=== PATIENT | male | born 1935 | race Caucasian/White ===

== ENCOUNTER → 2018-04-03 09:40 | Outpatient (CLI) | payer MEDICARE, OTHER, SELFPAY | PROVIDERS: PCP Student in an Organized Health Care Education/Training Program; Visit Provider Psychiatry & Neurology Neurology | DX: M85.852 Other specified disorders of bone density and structure, left thigh (principal) | CPT/HCPCS: 77080 ==

== ENCOUNTER → 2018-06-25 15:56 | Outpatient (CLI) | payer MEDICARE, OTHER, SELFPAY ==
[2018-06-25 16:50] LABS: Hematocrit 46.1 % (41-53)
[2018-06-25 17:09] LABS: Creatinine Urine Random 129.9 mg/dL; HEMOLYSIS 15 (0-50); Iron 96 ug/dL (49-181); Protein (Total) Urine Random 10 mg/dL (0-12); Protein Creatinine Ratio Urine 0.07 GRAM/24H
[2018-06-25 17:12] LABS: BUN Creatinine Ratio 13.1 (6-22); Blood Urea Nitrogen 21 mg/dL (9-20); Calcium 9.3 mg/dL (8.4-10.2); Carbon Dioxide 26 mmol/L (22-32); Chloride 106 mmol/L (98-107); Estimated Glomerular Filt Rate 41.6 mL/min (>60); Glucose 118 mg/dL (80-110); HEMOLYSIS < 15 (0-50); Potassium 4.1 mmol/L (3.4-5.1); Sodium 144 mmol/L (137-145)
[2018-06-25 17:20] LABS: Percent Iron Saturation 37 % (20-50); Total Iron Binding Capacity 257 ug/dL (261-462); Transferrin 204 mg/dL (206-381)
[2018-06-25 17:46] LABS: Ferritin 29.8 ng/mL (17.9-464)
[2018-06-27 16:36] LABS: Parathyroid Hormone Int 50 pg/mL (14-64)
== END ==
PROVIDERS: PCP Family Medicine; Visit Provider Student in an Organized Health Care Education/Training Program
DX: N05.9 Unspecified nephritic syndrome with unspecified morphologic changes (principal); D50.0 Iron deficiency anemia secondary to blood loss (chronic); D64.9 Anemia, unspecified; N25.81 Secondary hyperparathyroidism of renal origin
CPT/HCPCS: 36415; 80048; 82570; 82728; 83540; 83550; 83970; 84156; 85014; 85018

== ENCOUNTER → 2018-12-30 13:50 | Outpatient (CLI) | payer MEDICARE, OTHER, SELFPAY ==
[2018-12-30 14:30] LABS: Hematocrit 48.7 % (41-53); Hemoglobin 16.7 g/dL (13.5-17.5)
[2018-12-30 15:14] LABS: HEMOLYSIS < 15 (0-50); Iron 134 ug/dL (49-181)
[2018-12-30 15:25] LABS: Percent Iron Saturation 48 % (20-50); Total Iron Binding Capacity 281 ug/dL (261-462); Transferrin 220 mg/dL (206-381)
[2018-12-30 15:57] LABS: Blood Urea Nitrogen 21 mg/dL (9-20); Calcium 9.2 mg/dL (8.4-10.2); Carbon Dioxide 25 mmol/L (22-32); Chloride 108 mmol/L (98-107); Estimated Glomerular Filt Rate 44.7 mL/min (>60); Glucose 99 mg/dL (80-110); HEMOLYSIS < 15 (0-50); Potassium 4.1 mmol/L (3.4-5.1); Sodium 142 mmol/L (137-145)
[2018-12-30 16:02] LABS: Creatinine Urine Random 175.8 mg/dL; Protein (Total) Urine Random 10 mg/dL (0-12)
[2018-12-30 16:03] LABS: Protein Creatinine Ratio Urine 0.05 GRAM/24H
[2018-12-30 16:31] LABS: Ferritin 19.7 ng/mL (17.9-464)
[2019-01-02 15:14] LABS: Parathyroid Hormone Int 56 pg/mL (14-64)
== END ==
PROVIDERS: PCP Family Medicine; Visit Provider Student in an Organized Health Care Education/Training Program
DX: N05.9 Unspecified nephritic syndrome with unspecified morphologic changes (principal); D50.0 Iron deficiency anemia secondary to blood loss (chronic); D64.9 Anemia, unspecified; N25.81 Secondary hyperparathyroidism of renal origin; R80.9 Proteinuria, unspecified
CPT/HCPCS: 36415; 80048; 82570; 82728; 83540; 83550; 83970; 84156; 85014; 85018

== ENCOUNTER → 2019-05-17 14:58 | Outpatient (CLI) | payer MEDICARE, OTHER, SELFPAY ==
--- NOTE | 2019-05-17 | DI.CT.S_ITS ---
PROCEDURE: CT KIDNEY URETER BLADDER (KUB) INDICATIONS: Asymptomatic microscopic hematuria TECHNIQUE: Noncontrast 5 mm thick sections acquired from the diaphragms to the symphysis. 5 mm thick coronal and sagittal reformats were then performed. For radiation dose reduction, the following was used: automated exposure control, adjustment of mA and/or kV according to patient size. COMPARISON: [facility], CT, KIDNEY/ URETER/BLADDER, 06/30/2017, 9:44. CT IVP 10/08/2016. FINDINGS: Image quality: Excellent. Lung bases: Stable oblong-shaped pulmonary nodule in the right middle lobe, (4/12). Stable punctate pulmonary nodule in the left lung base, (4/7). Heart size is normal. Coronary artery calcifications. 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 Surgical clips at the left pelvic brim. No kidney stones. No hydronephrosis. No solid renal mass. A few stable simple cyst, the largest of which measuring 4.2 cm. No bladder calculus. There is less conspicuous thickening along the left lateral bladder wall. There is a small right lateral bladder diverticulum which has increased in size, (2/70). Other solid organs: Liver is normal in size. A few circumscribed benign cysts. Gallbladder is nondistended. Calcified gallstone is present, (2/35). Pancreas is atrophic. Spleen is normal in size. No adrenal nodules. Peritoneum and bowel: Moderate diverticulosis. The appendix is normal. Unenhanced bowel loops demonstrate normal wall thickness and caliber. A small duodenal diverticulum. No free fluid or air. Nodes and vessels: No retroperitoneal or mesenteric adenopathy by size criteria. Aorta and inferior vena cava are normal in caliber. Abdominal wall: No ventral hernias. Pelvis: No free pelvic fluid. No inguinal hernias or adenopathy. Bones: No suspicious bony lesions. Left hip total arthroplasty. No periprosthetic lucency. Stable severe L1 compression fracture. IMPRESSION: 1. No right renal mass seen on this noncontrast examination. If renal function permits and no contrast allergy recommend CT IVP to screen the renal collecting system/ureter for filling defects as was seen on CT IVP from 2017. 2. No kidney stones. No hydronephrosis. 3. No mass in the left nephrectomy bed. 4. Slight interval enlargement in the right lateral bladder wall diverticulum. Subtle persistent left lateral bladder wall thickening. Direct visualization with cystoscopy should be considered if not yet performed. Dictated by: Mookie Cochran M.D. on 05/17/2019 at 16:51 Approved by: Mookie Cochran M.D. on 05/17/2019 at 17:08
== END ==
PROVIDERS: PCP Family Medicine; Visit Provider Family Medicine
DX: R31.21 Asymptomatic microscopic hematuria (principal); N32.3 Diverticulum of bladder; N28.1 Cyst of kidney, acquired; R91.8 Other nonspecific abnormal finding of lung field; K57.90 Diverticulosis of intestine, part unspecified, without perforation or abscess without bleeding; Z90.5 Acquired absence of kidney
CPT/HCPCS: 74176

== ENCOUNTER → 2019-07-16 11:31 | Outpatient (CLI) | payer MEDICARE, OTHER, SELFPAY ==
[2019-07-16 12:29] LABS: Hematocrit 46.6 % (41-53); Hemoglobin 16.1 g/dL (13.5-17.5)
[2019-07-16 12:39] LABS: Blood Urea Nitrogen 21 mg/dL (9-20); Calcium 9.5 mg/dL (8.4-10.2); Carbon Dioxide 26 mmol/L (22-32); Chloride 106 mmol/L (98-107); Estimated Glomerular Filt Rate 44.7 mL/min (>60); Glucose 105 mg/dL (80-110); HEMOLYSIS < 15 (0-50); Potassium 4.2 mmol/L (3.4-5.1); Sodium 140 mmol/L (137-145)
[2019-07-16 13:11] LABS: Prostate Specific Antigen 4.84 ng/mL (0.10-4.00)
[2019-07-16 15:15] LABS: Creatinine Urine Random 155.3 mg/dL; Protein (Total) Urine Random 11 mg/dL (0-12); Protein Creatinine Ratio Urine 0.07 GRAM/24H
[2019-07-24 12:51] LABS: Parathyroid Hormone Int 37 pg/mL (14-64)
== END ==
PROVIDERS: Family Provider Student in an Organized Health Care Education/Training Program; PCP Family Medicine; Visit Provider Specialist
DX: N40.1 Benign prostatic hyperplasia with lower urinary tract symptoms (principal); N05.9 Unspecified nephritic syndrome with unspecified morphologic changes; D64.9 Anemia, unspecified; N25.81 Secondary hyperparathyroidism of renal origin; R80.9 Proteinuria, unspecified
CPT/HCPCS: 36415; 80048; 82570; 83970; 84153; 84156; 85014; 85018

== ENCOUNTER → 2020-01-27 16:56 | Outpatient (CLI) | payer MEDICARE, OTHER, SELFPAY ==
[2020-01-27 17:54] LABS: Hematocrit 46.9 % (41-53); Hemoglobin 16.5 g/dL (13.5-17.5)
[2020-01-27 18:12] LABS: BUN Creatinine Ratio 14.9 (6-22); Blood Urea Nitrogen 22 mg/dL (9-20); Calcium 9.4 mg/dL (8.4-10.2); Carbon Dioxide 26 mmol/L (22-32); Chloride 106 mmol/L (98-107); Estimated Glomerular Filt Rate 45.3 mL/min (>60); Glucose 91 mg/dL (80-110); HEMOLYSIS < 15 (0-50); Potassium 4.4 mmol/L (3.4-5.1); Sodium 139 mmol/L (137-145)
[2020-01-27 18:24] LABS: Creatinine Urine Random 98.4 mg/dL; Protein (Total) Urine Random 12 mg/dL (0-12); Protein Creatinine Ratio Urine 0.12 GRAM/24H
[2020-01-28 06:36] LABS: Parathyroid Hormone Int 38 pg/mL (15-65)
== END ==
PROVIDERS: Family Provider Student in an Organized Health Care Education/Training Program; PCP Family Medicine; Referring Provider Student in an Organized Health Care Education/Training Program; Visit Provider Student in an Organized Health Care Education/Training Program
DX: R80.9 Proteinuria, unspecified (principal); D64.9 Anemia, unspecified; N05.9 Unspecified nephritic syndrome with unspecified morphologic changes; N25.81 Secondary hyperparathyroidism of renal origin
CPT/HCPCS: 36415; 80048; 82570; 83970; 84156; 85014; 85018

== ENCOUNTER → 2020-10-27 09:16 | Outpatient (CLI) | payer MEDICARE, OTHER, SELFPAY ==
[2020-10-27] MEDS: COVID-19 VACC #1, MRNA(MOD) 100 MCG/0.5 ML VIAL IM (09:18)
== END ==
PROVIDERS: Family Provider Student in an Organized Health Care Education/Training Program; PCP Family Medicine; Visit Provider Internal Medicine
DX: Z23 Encounter for immunization (principal)
CPT/HCPCS: 0011A; 91301

== ENCOUNTER → 2020-11-24 09:17 | Outpatient (CLI) | payer MEDICARE, OTHER, SELFPAY ==
[2020-11-24] MEDS: COVID-19 VACC #2, MRNA(MOD) 100 MCG/0.5 ML VIAL IM (09:21)
== END ==
PROVIDERS: Family Provider Student in an Organized Health Care Education/Training Program; PCP Family Medicine; Visit Provider Internal Medicine
DX: Z23 Encounter for immunization (principal)
CPT/HCPCS: 0012A; 91301

== ENCOUNTER → 2021-02-20 11:36 | Outpatient (CLI) | payer MEDICARE, OTHER, SELFPAY ==
[2021-02-20 12:22] LABS: HEMOLYSIS < 15 (0-50); Potassium 4.6 mmol/L (3.4-5.1)
[2021-02-20 12:23] LABS: BUN Creatinine Ratio 17.5 (6-22); Blood Urea Nitrogen 27 mg/dL (9-20); Calcium 9.3 mg/dL (8.4-10.2); Carbon Dioxide 27 mmol/L (22-32); Chloride 106 mmol/L (98-107); Estimated Glomerular Filt Rate 43.1 mL/min (>60); Glucose 90 mg/dL (80-110); Sodium 139 mmol/L (137-145)
[2021-02-20 12:55] LABS: Thyroid Stimulating Hormone 2.88 uIU/mL (0.47-4.68)
== END ==
PROVIDERS: Family Provider Student in an Organized Health Care Education/Training Program; PCP Family Medicine; Referring Provider Family Medicine; Visit Provider Family Medicine
DX: E03.9 Hypothyroidism, unspecified (principal); I10 Essential (primary) hypertension; N18.30 Chronic kidney disease, stage 3 unspecified
CPT/HCPCS: 36415; 80048; 84443

== ENCOUNTER → 2021-09-25 15:16 | Outpatient (CLI) | payer MEDICARE, OTHER, SELFPAY ==
[2021-09-25 16:23] LABS: Appearance Urine UA CLOUDY; Bilirubin Urine UA NEGATIVE (NEGATIVE); Color Urine UA YELLOW; Glucose Urine UA TRACE g/dL (Negative); Ketones Urine UA NEGATIVE (NEGATIVE); Leukocyte Esterase Urine UA 1+ (NEGATIVE); Nitrite Urine UA POSITIVE (Negative); Occult Blood Urine UA 3+ (Negative); Protein Urine UA 2+ (Negative); Specific Gravity Urine UA >=1.030 (1.000-1.035); Urobilinogen Urine UA 0.2 E.U./dL (0.2)
[2021-09-25 17:06] LABS: Bacteria Urine Moderate (10-30); Culture Indicated Urine Specimen Cultured; RBC Urine 10-30/HPF (0-5/HPF); Squamous Epithelial Cell Urine 0-1 /HPF (0-5/HPF); WBC Urine 30-100/HPF (0-5/HPF)
== END ==
PROVIDERS: Family Provider Student in an Organized Health Care Education/Training Program; PCP Family Medicine; Referring Provider Specialist; Visit Provider Specialist
DX: R30.0 Dysuria (principal)
CPT/HCPCS: 81001; 87077; 87086; 87186

== ENCOUNTER → 2021-12-12 08:41 | Outpatient (CLI) | payer MEDICARE, OTHER, SELFPAY ==
[2021-12-12 10:24] LABS: Add Manual Diff / Slide Review NO; Basophils Absolute Auto 100 /uL (0-100); Eosinophils Absolute Auto 300 /uL (0-450); Eosinophils Percent Auto 4.4 % (2-4); Hematocrit 46.6 % (41-53); Lymphocytes Absolute Auto 2700 /uL (1100-4500); Lymphocytes Percent Auto 39.6 % (25-40); Mean Corpuscular HGB Conc 34.3 % (30-36); Mean Corpuscular Hemoglobin 29.8 PG (26-34); Mean Corpuscular Volume 86.9 fL (80-100); Monocytes Absolute Auto 600 /uL (0-900); Monocytes Percent Auto 8.1 % (3-14); Neutrophils Absolute Auto 3200 /uL (1500-7000); Neutrophils Percent Auto 46.9 % (50-75); Platelet Count 130 X10^3/uL (150-400); Red Blood Cell Count 5.36 X10^6/uL (4.5-5.9); Red Cell Distribution Width 14.2 % (11.6-14.8); White Blood Cell Count 6.9 X10^3/uL (4.5-11.0)
[2021-12-12 10:56] LABS: Alanine Aminotransferase 18 IU/L (<50); Albumin 4.1 g/dL (3.5-5.0); Albumin Globulin Ratio 1.4 (1.0-2.8); Alkaline Phosphatase 58 U/L (38-126); Aspartate Aminotransferase 30 IU/L (17-59); BUN Creatinine Ratio 16.1 (6-22); Bilirubin Total 0.7 mg/dL (0.2-1.3); Blood Urea Nitrogen 25 mg/dL (9-20); Calcium 9.2 mg/dL (8.4-10.2); Carbon Dioxide 26 mmol/L (22-32); Chloride 108 mmol/L (98-107); Cholesterol 236 mg/dL (140-199); Estimated Glomerular Filt Rate 42.7 mL/min (>60); Glucose 89 mg/dL (80-110); HDL Cholesterol 43 mg/dL (40-60); HEMOLYSIS < 15 (0-50); LDL Cholesterol Calculated 167 mg/dL (<100); Potassium 4.2 mmol/L (3.4-5.1); Sodium 141 mmol/L (137-145); Total Protein 7.1 g/dL (6.3-8.2); Triglycerides 128 mg/dL (35-150)
[2021-12-12 11:30] LABS: Thyroid Stimulating Hormone 5.56 uIU/mL (0.47-4.68)
== END ==
PROVIDERS: PCP Family Medicine; Referring Provider Family Medicine; Visit Provider Family Medicine
DX: N18.30 Chronic kidney disease, stage 3 unspecified (principal); E78.00 Pure hypercholesterolemia, unspecified
CPT/HCPCS: 36415; 80053; 80061; 84443; 85025

== ENCOUNTER → 2023-06-05 13:52 | Outpatient (CLI) | payer MEDICARE, OTHER, SELFPAY ==
--- NOTE | 2023-06-05 | DI.RAD.S_ITS ---
PROCEDURE: XR KNEE RT 3V INDICATIONS: RIGHT KNEE PAIN TECHNIQUE: 3 views of the knee were acquired. COMPARISON: None. 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 Soft tissues: No joint effusion. No suspicious soft tissue calcifications. 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 Recommend correlation for point tenderness. Mild to moderate tricompartmental osteoarthritis. Dictated by: Jocelyn Concepcion MD, PhD on 06/05/2023 at 15:01 Approved by: Jocelyn Concepcion MD, PhD on 06/05/2023 at 15:02
== END ==
PROVIDERS: PCP Family Medicine; Referring Provider Psychiatry & Neurology Neurology; Visit Provider Psychiatry & Neurology Neurology
DX: M25.561 Pain in right knee (principal); M17.11 Unilateral primary osteoarthritis, right knee
CPT/HCPCS: 73562